=== PATIENT | female | born 1970 | race Caucasian/White ===

== ENCOUNTER 2019-01-01 15:01 | Emergency (ER) | payer BC ==
[~2019-01-01] VITALS: Ht 172.7 cm; Wt 90.7 kg
[~2019-01-01 15:01] MED LIST: ALEVE PO; IBUP-1096 PO
--- NOTE | 2019-01-01 15:11 | NUR ---
SANGEETA WALLACE AT BEDSIDE FOR MSE.
[2019-01-01] MEDS ORDERED: ALBUTEROL SULFATE 2.5 MG/3 ML NEBU NEB ONE (15:15)
[2019-01-01] MEDS ORDERED: IPRATROPIUM BROMIDE 0.5 MG/2.5 ML NEBU NEB ONE (15:15)
--- NOTE | 2019-01-01 15:19 | NUR ---
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
[2019-01-01] MEDS ORDERED: IPRATROPIUM BROMIDE 0.5 MG/2.5 ML NEBU ONE (15:23)
[2019-01-01] MEDS ORDERED: ALBUTEROL SULFATE 2.5 MG/3 ML NEBU ONE (15:23)
[2019-01-01] MEDS ORDERED: ONDANSETRON ODT 4 MG TAB.RAPDIS ONE (15:31)
[2019-01-01 15:49] VITALS: BP 118/87
--- NOTE | 2019-01-01 15:49 | NUR ---
Patient discharged to home in stable conditon. Written and verbal after care instructions given. Patient verbalizes understanding of instructions. ALL BELONGINGS W/ PT. PT SELF-AMBULATED W/O DIFFICULTY.
== END 2019-01-01 15:51 | disposition home or self-care (01) ==
LOC: ER 15:03
DX: J06.9 Acute upper respiratory infection, unspecified (principal); K21.9 Gastro-esophageal reflux disease without esophagitis; Z88.0 Allergy status to penicillin; Z79.899 Other long term (current) drug therapy
CPT/HCPCS: 71045; A4663; J3590; Q0162

== ENCOUNTER 2019-02-24 15:10 | Emergency (ER) | payer BC ==
[~2019-02-24] VITALS: Ht 172.7 cm; Wt 90.7 kg
[2019-02-24 15:55] LABS: *URINE HCG, QUAL NEGATIVE (NEGATIVE)
[2019-02-24] MEDS ORDERED: KETOROLAC TROMETHAMINE 30 MG INJ IM ONE (16:00)
[2019-02-24] MEDS ORDERED: KETOROLAC TROMETHAMINE 30 MG INJ ONE (16:08)
[2019-02-24 16:20] VITALS: BP 112/55
--- NOTE | 2019-02-24 16:27 | NUR ---
Patient discharged to home in stable conditon. Written and verbal after care instructions given. Patient verbalizes understanding of instructions.
== END 2019-02-24 16:26 | disposition home or self-care (01) ==
LOC: ER 15:10
DX: M25.561 Pain in right knee (principal); K21.9 Gastro-esophageal reflux disease without esophagitis; Z88.0 Allergy status to penicillin; Z79.899 Other long term (current) drug therapy
CPT/HCPCS: 84703; 93971; 96372; 99284; J1885; A4663